=== PATIENT | male | born 1990 | race Caucasian/White ===

== ENCOUNTER 2022-09-27 12:18 | Emergency (ER) | payer BC, SELFPAY ==
--- NOTE | 2022-09-27 12:22 | ED.DENTAL ---
HPI - Dental/Oral General Chief complaint: Dental/Oral Stated complaint: Tooth infection Time Seen by Provider: 09/27/22 12:22 Source: patient Mode of arrival: ambulatory Limitations: no limitations History of Present Illness HPI Narrative: Curtis is a 32-year-old male patient presenting to clinic today with complaints of a possible tooth infection. He reports he noticed pain to his left upper 2nd incisor last night and developed drainage this morning. No fever or chills. Related Data Allergies Allergy/AdvReac Type Severity Reaction Status Date / Time Penicillins Allergy Intermediate Swelling Verified 09/27/22 12:21 of Lip/Tongue/Throat Review of Systems Review of Systems: Pertinent positives per HPI. Patient denies any fever, chills, rash, headache, visual changes, dizziness, cough, runny nose, sore throat, shortness of breath, chest pain, palpitations, nausea, vomiting, diarrhea, constipation, abdominal pain, or any urinary issues. PMFSH Surgical History Surgical History H/O inguinal hernia repair History of orthopedic surgery Left fifth digit repair status post forklift injury Comments At the time of my signature, I reviewed and agree with the nursing past medical, surgical, social, and family history. There is no relevant family history pertinent to the patient complaint. Exam Narrative: General: Well-developed, well nourished, in no apparent distress Head: Normocephalic, atraumatic Eyes: Pupils equally round and reactive to light bilaterally, EOM intact, sclera and conjunctive clear, no discharge, lids normal Ears: TMs intact and clear, ear canals clear, no drainage, grossly hearing normal. Nose: Nares patent, no discharge, no inflammation, no sinus tenderness. Mouth: Oropharynx without lesions or masses, very poor dentition, MMM. Dental abscess to the left upper 2nd incisor. Neck: Supple, trachea midline, no enlargement of anterior or posterior cervical nodes, no thyroid masses or goiter palpable. Cardio: Regular rate and rhythm, s1 and s2 normal, no murmur appreciated. Resp: Clear to auscultation bilaterally anteriorly and posteriorly, no rhonchi, rales, wheezing or rubs Course Course Emergency Course: Portions of this record may have been created with voice recognition software. Level of Care: Express Care Visit Vital Signs Vital signs: Vital signs reviewed MDM - Dental/Oral MDM Narrative Medical decision making narrative: At the time of visit patient is resting comfortably on the exam table. I suspect patient has a dental abscess. Prescription for clindamycin was sent to the pharmacy. Supportive measures were discussed with the patient and he voiced understanding of discharge instructions and agrees to treatment plan. Differential Diagnosis Differential diagnosis: Likely gingival abscess, dental caries, toothache and dental abscess Discharge Plan Discharge Clinical Impression: Dental abscess Patient Disposition: Home, Self-Care Condition: Stable Instructions: Antibiotic Form, Dental Abscess (ED) Additional Instructions: Take clindamycin as prescribed May take Tylenol/Motrin as needed for pain or fever Follow-up with your dentist as soon as possible. Go to the emergency room if you develop high fever not controlled by Tylenol or Motrin, worsening of pain, confusion, lethargy, weakness, chest pain, or shortness of breath. Prescriptions: New clindamycin HCl 300 mg capsule 300 mg PO Q8H 10 Days Qty: 30 0RF Follow-up/Referrals: PHYSICIAN,SATIN FINISHER [Primary Care Provider] - Time of Disposition: 12:36 Quality NIHSS Nursing Documentation ED NIHSS nursing documentation: reviewed/agree
[2022-09-27 12:31] VITALS: BP 130/84; PULSE 74; RESP 16; TEMP 36.6; O2SAT 99
== END 2022-09-27 12:40 | disposition home or self-care (01) ==
PROVIDERS: Emergency Provider Nurse Practitioner Family
DX: K04.7 Periapical abscess without sinus (principal)
CPT/HCPCS: 99213; G0463

== ENCOUNTER 2023-08-09 08:26 | Emergency (ER) | payer BC, SELFPAY ==
--- NOTE | ~2023-08-09 | XR_ITS ---
XR shoulder LT min 2V 08/09/2023 08:45 INDICATION: Left shoulder pain PROCEDURE: 4 views left shoulder COMPARISON: No prior studies for comparison. FINDINGS: Fracture, dislocation or subluxation is not identified. The soft tissues appear within norm al limits. No foreign bodies are identified. IMPRESSION: 1: NO ACUTE BONE OR JOINT ABNORMALITY IDENTIFIED. Reviewed, dictated and finalized at location B.
[2023-08-09 08:27] VITALS: BP 129/92; PULSE 87; RESP 20; TEMP 36.4; O2SAT 100
[2023-08-09] MEDS: KETOROLAC (*BKC) 60 MG/2 ML VIAL IM (08:49)
--- NOTE | 2023-08-09 09:15 | ED.UPPEXIN ---
HPI - Extremity Injury (Upper) General Chief Complaint: Extremity Injury, Upper Stated Complaint: left shoulder injury Time Seen by Provider: 08/09/23 08:29 History of Present Illness HPI narrative: Patient is a 32-year-old male who presents ER with left shoulder pain. He fell asleep with his child on his lap last night in a chair. When he woke up and tried to push himself up he felt a pop in his left upper shoulder moving into his back and scapula. No numbness or tingling. Has pain with internal rotation trying to reach his midback. Related Data Allergies Allergy/AdvReac Type Severity Reaction Status Date / Time Penicillins Allergy Intermediate Swelling Verified 08/09/23 08:32 of Lip/Tongue/Throat Review of Systems Constitutional: Constitutional: Reports no additional constitutional complaints Musculoskeletal: Musculoskeletal: Reports back pain, Reports arthralgias, Denies joint swelling and Denies muscle cramps Integumentary/Breasts: Skin/Breast: Reports system reviewed and no additional complaints, except as docu Neurologic: Reports system reviewed and no additional complaints, except as documented PMFSH Surgical History Surgical History H/O inguinal hernia repair History of orthopedic surgery Left fifth digit repair status post forklift injury Social History Social History (Updated 08/09/23 @ 09:20 by Manoj Abad MD) Social History: History of IV drug abuse. Exam Narrative: GENERAL: Well-appearing, well-nourished, and in no acute distress. HEAD: Normocephalic, atraumatic. HEART: Regular rate and rhythm. Normal peripheral pulses. EXTREMITIES: Normal range of motion But has some discomfort with internal rotation left upper extremity region towards midline of the back. No anterior joint pain. Most discomfort seems to be superior to the scapula on left side. No edema. SKIN: Warm, dry, no rash. NEURO: Alert and oriented x3. PSYCH: Normal mood and affect. Course Course Emergency Course: Patient educated on imaging results. Discussed conservative management and need for follow-up with PCP. Patient verbalized understanding. Vital Signs Vital signs: Vital Signs Temperature 97.6 F 08/09/23 08:27 Pulse Rate 87 08/09/23 08:27 Respiratory Rate 20 08/09/23 08:27 Blood Pressure 129/92 H 08/09/23 08:27 Pulse Oximetry 100 08/09/23 08:27 Oxygen Delivery Room Air 08/09/23 08:27 Temperature 97.6 F 08/09/23 08:27 Pulse Rate 87 08/09/23 08:27 Respiratory Rate 20 08/09/23 08:27 Blood Pressure 129/92 H 08/09/23 08:27 Pulse Oximetry 100 08/09/23 08:27 Oxygen Delivery Room Air 08/09/23 08:27 MDM - Extremity Injury (Upper) Imaging Data Radiologist's impression: ITS Impressions Shoulder X-Ray 08/09/23 08:47 IMPRESSION: 1: NO ACUTE BONE OR JOINT ABNORMALITY IDENTIFIED. Discharge Plan Discharge Clinical Impression: Left shoulder strain Patient Disposition: Home, Self-Care Condition: Stable Instructions: Shoulder Pain (ED) Additional Instructions: the pain in her shoulders likely related to a pulled muscle your scapula. Take anti-inflammatory medications to help with her discomfort. Follow up with her primary care doctor because if you are not improving you may require an MRI. Prescriptions: New naproxen 375 mg tablet 375 mg PO BID Qty: 14 0RF No Action clindamycin HCl 300 mg capsule 300 mg PO Q8H 10 Days Qty: 30 0RF Follow-up/Referrals: UNKNOWN,DOCTOR [Primary Care Provider] - 1 Week
== END 2023-08-09 09:30 | disposition home or self-care (01) ==
PROVIDERS: Emergency Provider Emergency Medicine
DX: S46.912A Strain of unspecified muscle, fascia and tendon at shoulder and upper arm level, left arm, initial encounter (principal); X50.9XXA Other and unspecified overexertion or strenuous movements or postures, initial encounter
CPT/HCPCS: 73030; 96372; 99283; J1885

== ENCOUNTER 2023-11-06 09:38 | Emergency (ER) | payer BC, SELFPAY ==
[2023-11-06 09:47] VITALS: BP 144/84; PULSE 98; RESP 16; TEMP 36.7; O2SAT 99
--- NOTE | 2023-11-06 10:41 | ED.GENADULT ---
HPI - General Adult General Chief complaint: Nausea/Vomiting/Diarrhea Stated complaint: throwing,TEJADA,cramping Source: patient Mode of arrival: ambulatory Limitations: no limitations History of Present Illness HPI narrative: Patient presents for evaluation of dizziness, lightheadedness, and sensation that he is going to pass out . Symptoms started today while working. 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 He reports dyspnea on exertion, going up the steps. That is a new symptom for him. He denies any chest pain. He believes he is dehydrated. He was recently on a 10 day vacation and drank (3) half-gallons of rum during that time. His urine is dark and concentrated. He reports nausea and vomiting, unable to keep any fluids down today. Related Data Home Medications Medication Instructions Recorded Confirmed ondansetron HCl 4 mg tablet 4 mg PO Q6H PRN Nausea And Vomiting 11/06/23 11/06/23 Allergies Allergy/AdvReac Type Severity Reaction Status Date / Time Penicillins Allergy Intermediate Swelling Verified 11/06/23 09:39 of Lip/Tongue/Throat Review of Systems Review of Systems: CONSTITUTIONAL: Reports weakness. Denies fever, chills, or sweats. EYES: Denies visual changes, redness, or discharge. ENT: Denies rhinorrhea, congestion, sore throat, or otalgia. CARDIOVASCULAR: Denies chest pain, palpitations, or edema. RESPIRATORY: Reports PRATT. Denies cough. GASTROINTESTINAL: Reports nausea and vomiting. Denies abdominal pain. GENITOURINARY: Denies dysuria or hematuria. SKIN: Denies rash or itching. MUSCULOSKELETAL: Denies back pain, joint pain, or myalgia. NEUROLOGIC: Reports dizziness, sensation he is going to pass out and lightheadedness. PSYCHIATRIC: Denies anxiety or depression. [facility] Past Medical History Medical History No pertinent past medical history Surgical History Surgical History H/O inguinal hernia repair History of orthopedic surgery Left fifth digit repair status post forklift injury Family History Family History Mother Family history non-contributory Social History Social History Social History: History of IV drug abuse. Smoking packs per day: 2 Smoking cigarettes per day: 40.0 Smoking status: Current every day smoker Tobacco type: cigarettes Alcohol intake: current Gender identity (if verbalized by the patient): Male Spiritual care concerns: No Exam Narrative: GENERAL: Well-appearing, well-nourished, and in no acute distress. HEAD: Normocephalic, atraumatic. EYES: PERRLA and EOMI. ENT: Nares clear, no rhinorrhea or epistaxis. Mucous membranes moist. Oropharynx without tonsillar hypertrophy exudate or other lesions. Bilateral TMs pearly hannon nonbulging NECK: Supple. No adenopathy or masses. No carotid bruits or JVD CHEST: Clear to auscultation. No respiratory distress. No wheezes rales or rhonchi HEART: Regular rate and rhythm. No murmur heard. Normal peripheral pulses. ABDOMEN: Soft, nontender, nondistended, normal active bowel sounds. EXTREMITIES: Normal range of motion. No edema. SKIN: Warm, dry, no rash. NEURO: No focal deficits. Alert and oriented x3. PSYCH: Normal mood and affect. Course Course Emergency Course: This is a 33-year-old male who presented for evaluation of dizziness, weakness, lightheadedness, near syncope, nausea and vomiting after he exposure. Unfortunately he is not able to keep any fluids down. Advised to go to the hospital for labs and IV hydration. He is agreeable to this plan. [facility] as his facility of choice. I contacted [facility] Emergency [facility] and spoke with Dr. Bridges who agreed to accept pt
== END 2023-11-06 10:10 | disposition short-term general hospital (02) ==
PROVIDERS: Emergency Provider Nurse Practitioner
DX: E86.0 Dehydration (principal); X30.XXXA Exposure to excessive natural heat, initial encounter; F17.210 Nicotine dependence, cigarettes, uncomplicated
CPT/HCPCS: 99212; G0463

== ENCOUNTER 2023-11-06 10:28 | Observation (INO) | payer BC, SELFPAY ==
[2023-11-06] VITALS (28 sets, daily range): BP systolic 124–155; BP diastolic 68–99; PULSE 95–128; RESP 11–23; TEMP 36.8–37.4; O2SAT 93–100; BMI 26.7
--- NOTE | ~2023-11-06 | US_ITS ---
Limited ABDOMINAL ULTRASOUND Ordering provider: Prachi Newberry PA-C History: . abnl lfts, n/v . Comparison: None FINDINGS: LIVER: Normal size.Fat infiltration.. No focal hepatic lesions or perihepatic fluid collections are i dentified. Portal vein flow normal. GALLBLADDER: Distended. Unremarkable. No evidence for stones, sludge, gallbladder wall thickening or pericholecystic fluid collections. The wall thicknesses 0.4 cm. A negative sonographic Quinn's sign was noted. BILIARY DUCTS: No evidence for intra or extrahepatic biliary dilation. Common bile duct measures 5 mm in diameter which is within normal limits. PANCREAS: Normal echotexture and size. UPPER ABDOMINAL AORTA: Normal in caliber. Proximal aorta measures 1.9 cm. IVC: Patent. FREE FLUID: None. IMPRESSION: Fat infiltration of the liver otherwise, Unremarkable limited ultrasound of the abdomen. Reviewed, dictated and finalized at location A.
--- NOTE | 2023-11-06 11:00 | ECG_ITS ---
Test Date: 2023-11-06 11:31:43 Measurements Intervals [place] Rate: 87 P: 71 OK: 151 QRS: 54 QRSD: 95 T: 42 QT: 372 QTc: 450 Interpretive Statements SINUS RHYTHM WITH SINUS ARRHYTHMIA BORDERLINE ST-T WAVE ABNORMALITY- INF/LAT LEADS BORDERLINE ECG No previous ECG available for comparison Electronically Signed On 11-06-2023 12:11:06 CDT by Bj Bright D.O.
[2023-11-06 11:01] LABS: Basophils Absolute Auto 0.1 K/mm3 (0.0-0.1); Basophils Percent Auto 1.8 % (0.2-1.2); Eosinophils Absolute Auto 0.1 K/mm3 (0-0.3); Eosinophils Percent Auto 1.2 % (0-4.4); Hematocrit 43.3 % (42.0-52.0); Hemoglobin 15.3 g/dL (14.0-18.0); Immature Granulocyte Absolute 0.02 K/mm3 (0.00-0.031); Immature Granulocyte Percent A 0.4 % (0-0.5); Lymphocytes Percent Auto 28.2 % (18.3-44.2); Mean Corpuscular HGB Conc 35.3 g/dl (32-36); Mean Corpuscular Hemoglobin 34.9 pg (26-34); Mean Corpuscular Volume 98.9 fl (80-100); Mean Platelet Volume 10.4 fl (7.4-10.4); Monocytes Absolute Auto 0.4 K/mm3 (0.1-0.6); Monocytes Percent Auto 8.5 % (2.6-8.5); Neutrophils Percent Auto 59.9 % (45.5-73.1); Platelet Count Result 110 k/mm3 (150-375); Red Blood Count 4.38 M/mm3 (4.6-6.20)
[2023-11-06 11:14] LABS: Lactic Acid Reflex 2.3 mmol/L (0.7-2.0)
[2023-11-06 11:18] LABS: Alanine Aminotransferase 108 U/L (6-50); Albumin Level 4.5 g/dL (3.5-5.1); Alkaline Phosphatase 86 U/L (38-126); Anion Gap 14 mmol/L (4-12); Aspartate Amino Transferase 211 U/L (17-59); Bilirubin,Total 2.7 mg/dL (0.2-1.3); Blood Urea Nitrogen 5 mg/dL (9-20); Calcium 9.2 mg/dL (8.4-10.2); Carbon Dioxide 30 mmol/L (22-30); Chloride 95 mmol/L (98-107); Creatine Kinase 221 U/L (55-170); Estimated CRCL calculation 116 ml/min; Estimated Glomerular Filt Rate > 60; Glucose 129 mg/dL (65-110); Potassium 2.6 mmol/L (3.4-5.0); Sodium 139 mmol/L (137-145)
[2023-11-06] MEDS: SODIUM CHLORIDE 0.9% IV 1,000 ML 999 ML IV CONT ×2 (11:23→12:00)
[2023-11-06 11:34] LABS: Magnesium 1.3 mg/dL (1.6-2.3)
[2023-11-06 11:37] LABS: Add Urine Microscopic? YES; Appearance Urine Clear (Clear); Bacteria Urine None Seen /hpf; Bilirubin Urine 2+ (Negative); Blood Urine Negative (Negative); Color Urine Dark Yellow (Yellow); Glucose Urine UA Negative (Negative); Ketones Urine Negative (Negative); Leukocyte Esterase Ur 1+ LEU/UL (Negative); Mucus Urine Present /lpf; Need Manual Microscopic Reviewed; Nitrate Urine Positive (Negative); Protein Urine 1+ mg/dL (Negative); RBC Urine 0-2 /hpf (0-2); Specific Grav Ur 1.018 (1.001-1.035); Squamous Epithelial Cell Urine None Seen /hpf (Few); WBC Urine 0-5 /hpf (0-3)
[2023-11-06] MEDS: POTASSIUM CHLORIDE INJ 40 MEQ in SODIUM CHLORIDE 0.9% IV 500 ML 130 MEQ IVPB (11:56)
[2023-11-06 11:58] LABS: Lipase 183 U/L (23-300)
[2023-11-06] MEDS: POTASSIUM CHLORIDE 20 MEQ ER TABLET 40 MEQ PO (12:17)
[2023-11-06] MEDS: MAGNESIUM SULF 2 GM/WATER 50ML 2 GM/50 ML BAG IVPB (12:18)
--- NOTE | 2023-11-06 12:23 | ED.GENADULT ---
HPI - General Adult General Chief complaint: Unspecified <EDWARD Orellana Last Filed: 11/06/23 14:41> Stated complaint: heat exhaustion, near syncope <EDWARD Orellana Last Filed: 11/06/23 14:41> Time Seen by Provider: 11/06/23 10:43 <EDWARD Orellana Last Filed: 11/06/23 14:41> Source: patient <EDWARD Orellana Last Filed: 11/06/23 14:41> Mode of arrival: ambulatory <EDWARD Orellana Last Filed: 11/06/23 14:41> Limitations: no limitations <EDWARD Orellana Last Filed: 11/06/23 14:41> History of Present Illness HPI narrative: Patient is a 33 y/o male who presents the ED with concern for heat exhaustion. Patient reports he spent his last 10 days on vacation with his family outside. He states he drink alcohol most days and did not drink much water. 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 He states he was working in a 5 story building that was approximately 130?. While walking up and down stairs at work he began feeling very dizzy lightheaded, near syncopal. He was then referred here for further evaluation. Patient also reports having muscle cramping this morning, nausea. Denies vomiting, abdominal pain, focal weakness or numbness. Patient does drink 1-2 drinks of alcohol daily. He has had the shakes before after stopping drinking. He denies history of withdrawal seizures. <EDWARD Orellana Last Filed: 11/06/23 14:41> Related Data Home medications: Home Medications Medication Instructions Recorded Confirmed ondansetron HCl 4 mg tablet 4 mg PO Q6H PRN Nausea And Vomiting 11/06/23 11/06/23 <EDWARD Orellana Last Filed: 11/06/23 14:41> Allergies/adverse reactions: Allergies Allergy/AdvReac Type Severity Reaction Status Date / Time Penicillins Allergy Intermediate Swelling Verified 11/06/23 09:39 of Lip/Tongue/Throat <Prachi Newberry PA-C - Last Filed: 11/06/23 14:41> Review of Systems Review of Systems: CONSTITUTIONAL: Denies fever, chills, or sweats. GASTROINTESTINAL: See HPI MUSCULOSKELETAL: See HPI NEUROLOGIC: See HPI <Prachi Newberry PA-C - Last Filed: 11/06/23 14:41> All systems reviewed & are unremarkable except as noted in HPI and below <Prachi Newberry PA-C - Last Filed: 11/06/23 14:41> [facility] Past Medical History Medical History: Medical History (Updated 11/07/23 @ 00:02 by Suman Elizondo) Daily consumption of alcohol Tobacco dependence <Prachi Newberry PA-C - Last Filed: 11/06/23 14:41> Surgical History Surgical History: Surgical History History of inguinal hernia repair History of orthopedic surgery Left fifth digit repair status post forklift injury. <Prachi Newberry PA-C - Last Filed: 11/06/23 14:41> Family History Family History: Family History Mother Family history non-contributory <Prachi Newberry PA-C - Last Filed: 11/06/23 14:41> Social History Social History: Social History (Updated 11/06/23 @ 21:50 by Jennie Lopez PA-C) Social History: Surrogate medical decision maker: Mirtha Tariq, spouse. Code status: Full code. Smoking packs per day: 2 Smoking cigarettes per day: 40.0 Smoking status: Current every day smoker Tobacco type: cigarettes Second hand tobacco smoke exposure: Yes Alcohol intake: current Drinks per week: 24 Substance use: never Substance use type: does not use Do You Feel Safe in your Home?: Yes Lack of Transportation: No Lack of Food: Never True Current Housing: I Have Housing Concerned About Future Housing: No Difficulty Paying Gas/Electric Bills: No Difficulty Paying for Meds: No Currently Unemployed: No Education: High School Diploma/GED Difficulty w/ Ch
[2023-11-06 13:59] LABS: Reflex Lactic Acid Yes or No Add Lactic
--- NOTE | 2023-11-06 14:00 | PM.IMHP ---
H&P: HPI History of Present Illness Date/Time: 11/06/23 15:00 Chief Complaint: Feels dehydrated. Narrative: This is a previously healthy 33-year-old male smoker who presented to the emergency department via private vehicle for evaluation as he feels dehydrated. The patient provides the following history. He recently returned from a family trip to [place] in [place] and he consumed quite a bit of alcohol during that trip. He admits that he did not make attempts to stay hydrated despite being outside on the [place] for majority of the 10 days. 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 F. He has become increasingly lightheaded, dizzy, and nauseated as the day has progressed and his muscles are cramping. He believes that he is probably dehydrated. He denies syncope, vomiting, chest pain, shortness of breath, and diarrhea. He has not noticed a significant decrease in urine output but urine is darker than usual. He denies dysuria, hematuria lower abdominal pain low back In regards to his alcohol consumption, he reports drinking 1 to 2 alcoholic beverages a day however he goes on to say that he has had shakes before when he has gone days without drinking. He has not had any significant alcohol withdrawal symptoms nor has he had alcohol withdrawal seizures. In the ED: He was afebrile on arrival and in a sinus tachycardia with stable blood pressures. Labs are significant for WBC count 5.0, hemoglobin 15.3, hematocrit 43.3%, sodium 139, potassium 2.6, chloride 95, carbon dioxide 30, anion gap 14, BUN 5, creatinine 0.80, lactic acid 2.3, magnesium 1.3, total bilirubin 2.7, AST 211, ALT 108, alkaline phosphatase 86, total CK 221, total protein 9.0. Urine was positive for 1+ protein, 1+ leukocyte esterase, nitrates, and 0 to 5 WBC. No bacteria or squamous cells were noted on microscopy. Abdominal ultrasound showed fatty infiltration of the liver. He was given a 2 L normal saline bolus, magnesium sulfate 2 mg IV, and potassium chloride 40 mEq p.o. and 40 mEq IV. He is being admitted in this setting for further hydration. Review of Systems Review of Systems: 12 systems were reviewed and are negative except for as per HPI. [facility] Past Medical History Medical History (Updated 11/06/23 @ 21:49 by Jennie Lopez PA-C) Daily consumption of alcohol Tobacco dependence Surgical History Surgical History History of inguinal hernia repair History of orthopedic surgery Left fifth digit repair status post forklift injury. Family History Family History Mother Family history non-contributory Social History Social History (Updated 11/06/23 @ 21:50 by Jennie Lopez PA-C) Social History: Surrogate medical decision maker: Mirtha Tariq, spouse. Code status: Full code. Smoking packs per day: 2 Smoking cigarettes per day: 40.0 Smoking status: Current every day smoker Tobacco type: cigarettes Second hand tobacco smoke exposure: Yes Alcohol intake: current Drinks per week: 24 Substance use: never Substance use type: does not use Do You Feel Safe in your Home?: Yes Lack of Transportation: No Lack of Food: Never True Current Housing: I Have Housing Concerned About Future Housing: No Difficulty Paying Gas/Electric Bills: No Difficulty Paying for Meds: No Currently Unemployed: No Education: High School Diploma/GED Difficulty w/ Childcare or Family Care: No Spiritual care concerns: No Meds Home Medications and Allergies Home Medications Medication Instructions Recorded Confirmed Type ondansetron HCl 4 mg tablet 4 mg PO Q6H PRN Nausea And Vomiting 11/06/23 11/06/23 History Allergies Allergy/AdvReac Type Severity Reaction Status Date / Time Penicillins Allergy Intermediate Swelling
[2023-11-06 14:19] LABS: Lactic Acid 1.9 mmol/L (0.7-2.0)
[2023-11-06] MEDS: ONDANSETRON INJ 4 MG/2 ML VIAL IV PUSH ×2 (14:51→20:33)
[2023-11-06] MEDS: LORazepam INJ (*CRX) 2 MG/ML VIAL IV PUSH (14:52)
--- NOTE | 2023-11-06 15:30 | ADMGEN ---
This patient, Curtis Tariq, was admitted to 2 Medical Room 240-. Patient/family oriented to hospital policies and general routines including ID bracelet, bed and alarms, visiting hours, pain management, procedures, bathroom and other care routines, personal items, smoking policy, room service/diet, and visiting hours. Information on how to activate the Rapid Response Team has been discussed. Patient/Family are encouraged to report perceived risks to care and to ask questions if they do not understand what they are told or what they should do.
[2023-11-06] MEDS: THIAMINE HCL 200 MG/2 ML VIAL 100 MG IV PUSH (15:50)
[2023-11-06] MEDS: SODIUM CHLORIDE 0.9% IV 1,000 ML 125 ML IV CONT ×2 (15:51→20:33)
[2023-11-06 18:27] LABS: Magnesium 1.8 mg/dL (1.6-2.3)
[2023-11-06 18:29] LABS: Creatine Kinase 188 U/L (55-170)
[2023-11-06 18:30] LABS: Anion Gap 9 mmol/L (4-12); Blood Urea Nitrogen 4 mg/dL (9-20); Calcium 8.1 mg/dL (8.4-10.2); Carbon Dioxide 29 mmol/L (22-30); Chloride 102 mmol/L (98-107); Estimated CRCL calculation 116 ml/min; Estimated Glomerular Filt Rate > 60; Glucose 163 mg/dL (65-110); Potassium 3.4 mmol/L (3.4-5.0); Sodium 140 mmol/L (137-145)
[2023-11-06 19:39] LABS: Hepatitis B Surface Antigen Negative (Negative)
[2023-11-06 19:45] LABS: HAV RESULT Negative (Negative); Hepatitis B Core IgM Result Negative (Negative)
[2023-11-06 20:01] LABS: Hepatitis C Virus Antibody Reactive (Negative)
[2023-11-06] MEDS: chlordiazePOXIDE (*CRX) 10 MG CAPSULE PO (20:33)
[2023-11-06] MEDS: LORazepam INJ (*CRX) 2 MG/ML VIAL 1 MG IV PUSH (20:34)
[2023-11-07] VITALS: BP 124/76; PULSE 99
[2023-11-07 00:42] LABS: Glucose Point of Care 98 mg/dl (65-105)
[2023-11-07 04:00] VITALS: PULSE 86
[2023-11-07 05:48] LABS: Basophils Absolute Auto 0.1 K/mm3 (0.0-0.1); Basophils Percent Auto 1.7 % (0.2-1.2); Eosinophils Absolute Auto 0.1 K/mm3 (0-0.3); Eosinophils Percent Auto 2.5 % (0-4.4); Hematocrit 37.3 % (42.0-52.0); Hemoglobin 12.8 g/dL (14.0-18.0); Immature Granulocyte Absolute 0.01 K/mm3 (0.00-0.031); Immature Granulocyte Percent A 0.2 % (0-0.5); Immature Platelet Fraction Pct 4.6 % (0.9-11.2); Lymphocytes Absolute Auto 1.54 K/mm3 (0.9-3.2); Lymphocytes Percent Auto 32.7 % (18.3-44.2); Mean Corpuscular HGB Conc 34.3 g/dl (32-36); Mean Corpuscular Hemoglobin 35.2 pg (26-34); Mean Corpuscular Volume 102.5 fl (80-100); Mean Platelet Volume 10.8 fl (7.4-10.4); Monocytes Absolute Auto 0.4 K/mm3 (0.1-0.6); Monocytes Percent Auto 7.4 % (2.6-8.5); Neutrophils Absolute Auto 2.6 K/mm3 (1.3-6.7); Neutrophils Percent Auto 55.5 % (45.5-73.1); Platelet Count Result 98 k/mm3 (150-375); Red Blood Count 3.64 M/mm3 (4.6-6.20); Red Cell Distribution Width 12.1 % (11.5-14.5); White Blood Count 4.7 K/mm3 (4.5-10.0)
[2023-11-07] MEDS: SODIUM CHLORIDE 0.9% IV 1,000 ML 125 ML IV CONT ×2 (05:57→12:22)
[2023-11-07 05:58] LABS: Alanine Aminotransferase 71 U/L (6-50); Albumin Level 3.4 g/dL (3.5-5.1); Alkaline Phosphatase 75 U/L (38-126); Anion Gap 7 mmol/L (4-12); Aspartate Amino Transferase 107 U/L (17-59); Blood Urea Nitrogen 6 mg/dL (9-20); Calcium 7.4 mg/dL (8.4-10.2); Carbon Dioxide 27 mmol/L (22-30); Chloride 105 mmol/L (98-107); Creatine Kinase 136 U/L (55-170); Estimated CRCL calculation 116 ml/min; Estimated Glomerular Filt Rate > 60; Glucose 91 mg/dL (65-110); Magnesium 1.6 mg/dL (1.6-2.3); Potassium 3.2 mmol/L (3.4-5.0); Sodium 139 mmol/L (137-145)
[2023-11-07 05:59] VITALS: BP 126/73; PULSE 95; RESP 18; TEMP 36.9; O2SAT 94
[2023-11-07 06:42] LABS: Glucose Point of Care 95 mg/dl (65-105)
--- NOTE | 2023-11-07 07:26 | P.PNIM_ITS ---
Progress Note: A&P Assessment and Plan (1) Dehydration: Code(s): E86.0 - Dehydration Status: Acute Assessment and Plan: 11/07/23: * Patient given 2 L normal saline while in the ED * He was started on IV fluids at 125 mL/hr (2) Abnormal urinalysis: Code(s): R82.90 - Unspecified abnormal findings in urine Status: Acute Assessment and Plan: 11/07/23: * UA showing 1+ urine protein, positive nitrate, 2+ urine bilirubin urine urobilinogen 2.0, 1+ leukocyte * Urine culture pending * No symptoms of UTI, no antibiotics started (3) Electrolyte abnormality: Code(s): E87.8 - Other disorders of electrolyte and fluid balance, not elsewhere classified Status: Acute Assessment and Plan: 11/07/23: * Initial potassium 2.6, now 3.2. He was given 40 mEq of potassium in the ED * Initial magnesium 1.3, now 1.6. He was given 2 g of Mag in the ED * We will give another 60 mEq of potassium as well as 2 g of Mag again today * Continue to trend (4) Transaminitis: Code(s): R74.01 - Elevation of levels of liver transaminase levels Status: Acute Assessment and Plan: 11/07/23: * Initial Total bili 2.7, AST 211, ALT 108 * Today total bili 3.0, AST 107, ALT 71 * Ultrasound of abdomen shows fatty liver disease * Hepatitis panel reactive for hep C * HCV RNA PCR pending (5) Fatty liver: Code(s): K76.0 - Fatty (change of) liver, not elsewhere classified Status: Acute Assessment and Plan: 11/07/23: * Ultrasound of abdomen showing fatty liver * See above plan of care (6) Daily consumption of alcohol: Code(s): Z78.9 - Other specified health status Status: Acute Assessment and Plan: 11/07/23: * Reports everyday alcohol use with an average of 24 drinks per week * [facility] protocol (7) Thrombocytopenia: Code(s): D69.6 - Thrombocytopenia, unspecified Status: Acute Assessment and Plan: 11/07/23: * Initial Plt count 110, now down to 98 * Likely secondary to liver disease * Will check Vitamin B12 (8) Tobacco dependence: Code(s): F17.200 - Nicotine dependence, unspecified, uncomplicated Status: Acute Assessment and Plan: 11/07/23: * Current every day smoker, 2 packs per day * Smoking cessation Time Spent With Patient Time with patient: Greater than 35 minutes Subjective Date/time seen: 11/07/23 07:26 Interval history: Interval history: This is a 33-year-old male who presented to the hospital on 11/06/2023 with complaints of dehydration, lightheadedness, dizziness, nausea, muscle aches and cramping. Workup hospital included ultrasound of the abdomen which showed fat infiltration of the liver.. Labs include a white blood cell count of 5.0, platelet count 110, potassium 2 point, anion gap 14, lactic acid 2.3> 1.9, magnesium 1.3, total bili 2.7, AST 211, ALT 108, total CK 221> 188> 136. UA was obtained and showed 1+ urine protein, positive nitrate, 2+ urine bili, 2.p urine urobilinogen, 1+ leukocyte. Hepatitis panel was reactive to hepatitis C, HCV RNA PCR pending. Urine culture pending. EKG shown sinus rhythm with a rate of 87, QTC 450. He was given 2 L normal saline, 80 mEq of potassium, 2 g of Mag, and thiamin while in the ED. he was started on CIWA protocol. 11/07/23: Patient denies. Patient endorses. Review of Systems Review of Systems: All systems reviewed & are unremarkable except as noted in HPI and below Constitutional: Constitutional: Reports as per HPI and Reports no additional constitutio
--- NOTE | 2023-11-07 07:26 | PM.IMPN ---
Progress Note: A&P Assessment and Plan (1) Dehydration: Code(s): E86.0 - Dehydration Status: Acute Assessment and Plan: 11/07/23: Patient given 2 L normal saline while in the ED He was started on IV fluids at 125 mL/hr (2) Abnormal urinalysis: Code(s): R82.90 - Unspecified abnormal findings in urine Status: Acute Assessment and Plan: 11/07/23: UA showing 1+ urine protein, positive nitrate, 2+ urine bilirubin urine urobilinogen 2.0, 1+ leukocyte Urine culture pending No symptoms of UTI, no antibiotics started (3) Electrolyte abnormality: Code(s): E87.8 - Other disorders of electrolyte and fluid balance, not elsewhere classified Status: Acute Assessment and Plan: 11/07/23: Initial potassium 2.6, now 3.2. He was given 40 mEq of potassium in the ED Initial magnesium 1.3, now 1.6. He was given 2 g of Mag in the ED We will give another 60 mEq of potassium as well as 2 g of Mag again today Continue to trend (4) Transaminitis: Code(s): R74.01 - Elevation of levels of liver transaminase levels Status: Acute Assessment and Plan: 11/07/23: Initial Total bili 2.7, AST 211, ALT 108 Today total bili 3.0, AST 107, ALT 71 Ultrasound of abdomen shows fatty liver disease Hepatitis panel reactive for hep C HCV RNA PCR pending (5) Fatty liver: Code(s): K76.0 - Fatty (change of) liver, not elsewhere classified Status: Acute Assessment and Plan: 11/07/23: Ultrasound of abdomen showing fatty liver See above plan of care (6) Daily consumption of alcohol: Code(s): Z78.9 - Other specified health status Status: Acute Assessment and Plan: 11/07/23: Reports everyday alcohol use with an average of 24 drinks per week CIWA protocol (7) Thrombocytopenia: Code(s): D69.6 - Thrombocytopenia, unspecified Status: Acute Assessment and Plan: 11/07/23: Initial Plt count 110, now down to 98 Likely secondary to liver disease Will check Vitamin B12 (8) Tobacco dependence: Code(s): F17.200 - Nicotine dependence, unspecified, uncomplicated Status: Acute Assessment and Plan: 11/07/23: Current every day smoker, 2 packs per day Smoking cessation Time Spent With Patient Time with patient: Greater than 35 minutes Subjective Date/time seen: 11/07/23 07:26 Interval history: Interval history: This is a 33-year-old male who presented to the hospital on 11/06/2023 with complaints of dehydration, lightheadedness, dizziness, nausea, muscle aches and cramping. Workup hospital included ultrasound of the abdomen which showed fat infiltration of the liver.. Labs include a white blood cell count of 5.0, platelet count 110, potassium 2 point, anion gap 14, lactic acid 2.3> 1.9, magnesium 1.3, total bili 2.7, AST 211, ALT 108, total CK 221> 188> 136. UA was obtained and showed 1+ urine protein, positive nitrate, 2+ urine bili, 2.p urine urobilinogen, 1+ leukocyte. Hepatitis panel was reactive to hepatitis C, HCV RNA PCR pending. Urine culture pending. EKG shown sinus rhythm with a rate of 87, QTC 450. He was given 2 L normal saline, 80 mEq of potassium, 2 g of Mag, and thiamin while in the ED. he was started on CIWA protocol. 11/07/23: Patient denies. Patient endorses. Review of Systems Review of Systems: All systems reviewed & are unremarkable except as noted in HPI and below Constitutional: Constitutional: Reports as per HPI and Reports no additional constitutional complaints Eyes: Eyes: Reports as per HPI and Reports no additional eye complaints ENT: Reports system reviewed and no additional complaints, except as documented and Reports as per HPI Cardiovascular: Cardiovascular: Reports as per HPI and Reports no additional cardiovascular complaints Respiratory: Respiratory: Reports as per HPI and Reports no additional respiratory complaints Gastrointestinal: Gastrointestinal: Reports as p
[2023-11-07 08:00] VITALS: BP 120/58; PULSE 79; PULSE 92; RESP 18; TEMP 36.7; O2SAT 90
[2023-11-07] MEDS: MAGNESIUM SULF 2 GM/WATER 50ML 2 GM/50 ML BAG IVPB (08:20)
[2023-11-07 08:21] LABS: Hemoglobin A1C 4.9 % (<5.7)
[2023-11-07] MEDS: FOLIC ACID 1 MG TABLET PO (08:21)
[2023-11-07] MEDS: POTASSIUM CHLORIDE 20 MEQ ER TABLET 40 MEQ PO (08:21)
[2023-11-07] MEDS: THIAMINE HCL 100 MG TABLET PO (08:21)
[2023-11-07 11:50] LABS: Glucose Point of Care 104 mg/dl (65-105)
[2023-11-07 12:00] VITALS: PULSE 84
[2023-11-07] MEDS: POTASSIUM CHLORIDE 20 MEQ ER TABLET PO (12:22)
[2023-11-07 13:37] LABS: Alanine Aminotransferase 77 U/L (6-50); Albumin Level 4.1 g/dL (3.5-5.1); Alkaline Phosphatase 86 U/L (38-126); Anion Gap 9 mmol/L (4-12); Aspartate Amino Transferase 119 U/L (17-59); Bilirubin,Total 3.6 mg/dL (0.2-1.3); Blood Urea Nitrogen 5 mg/dL (9-20); Calcium 8.2 mg/dL (8.4-10.2); Carbon Dioxide 28 mmol/L (22-30); Chloride 100 mmol/L (98-107); Estimated CRCL calculation 116 ml/min; Estimated Glomerular Filt Rate > 60; Glucose 125 mg/dL (65-110); Magnesium 2.2 mg/dL (1.6-2.3); Potassium 3.7 mmol/L (3.4-5.0); Sodium 137 mmol/L (137-145)
--- NOTE | 2023-11-07 17:27 | PM.DS ---
DS: Admitting Diagnosis Discharge Date 11/07/23 Admitting Diagnosis Electrolyte abnormality Dehydration Transaminitis Fatty liver Thrombocytopenia Tobacco dependence abnormal urinalysis DS: Summary Hospital Course Reason for hospitalization: Electrolyte abnormality Dehydration Transaminitis Fatty liver Thrombocytopenia Tobacco dependence abnormal urinalysis Hospital Course: This is a 33-year-old male who presented to the hospital on 11/06/2023 with complaints of dehydration, lightheadedness, dizziness, nausea, muscle aches and cramping. Workup hospital included ultrasound of the abdomen which showed fat infiltration of the liver.. Labs include a white blood cell count of 5.0, platelet count 110, potassium 2 point, anion gap 14, lactic acid 2.3> 1.9, magnesium 1.3, total bili 2.7, AST 211, ALT 108, total CK 221> 188> 136. UA was obtained and showed 1+ urine protein, positive nitrate, 2+ urine bili, 2.p urine urobilinogen, 1+ leukocyte. Hepatitis panel was reactive to hepatitis C, HCV RNA PCR pending. Urine culture pending. EKG shown sinus rhythm with a rate of 87, QTC 450. He was given 2 L normal saline, 80 mEq of potassium, 2 g of Mag, and thiamin while in the ED. he was started on CIWA protocol. Patient denies any fever, chills, nausea, vomiting, diarrhea, abdominal pain, chest pain, shortness a breath. He states that he is feeling much better after receiving fluids and electrolytes. Patient can be discharged home today with close follow-up with primary care physician regarding reactive hepatitis-C reading on labs and his thrombocytopenia. Labs ordered for 1 week and he will follow up with his primary care physician after that. Final diagnosis: Hypokalemia, hypomagnesemia, dehydration transaminitis, fatty liver disease, hepatitis-C, thrombocytopenia Status at Discharge Cognitive/behavioral status at discharge: Alert oriented x3 Functional status at discharge: independent ambulation Overall status at discharge: patient is progressing back to baseline Time Spent with Patient Time attestation: Total time spent providing and/or coordinating discharge services: Time spent: Greater than 30 minutes Exam Narrative: General: In no acute distress, well nourished Head: atraumatic, no encephalopathy Eyes: EOMI, PERRLA, sclera clear ENT: moist mucous membranes, nasal passages clear Neck: supple, no JVD, no adenopathy, trachea midline Cardiac: Normal S1 and S2. RRR No murmur, gallops or friction rubs, peripheral pulses intact. Respiratory: Lungs clear to auscultation, no adventitious lung sounds, currently on room air Gastrointestinal: soft, non-distended, non-tender, normoactive bowel sounds. : voiding without difficulty. Extremities: moves all extremities well, no edema, good ROM, strength 5/5 Skin: clean, dry, intact. No wounds or lesions. Neuro: Alert and oriented x4, cranial nerves intact, no neuro deficits. Psych: normal mood, normal affect, interactive DS: Data Data Completed and Pending Completed studies during hospitalization: Abdomen ultrasound Pending studies at discharge: Urine Culture Labs on day of discharge: Labs from last 24 hours 11/07/23 11/07/23 11/07/23 13:15 11:48 05:57 WBC RBC Hgb Hct MCV MCH MCHC RDW Plt Count MPV Immature Gran % (Auto) Neut % (Auto) Lymph % (Auto) [place] % (Auto) Eos % (Auto) Baso % (Auto) Lymph # (Auto) [place] # (Auto) Eos # (Auto) Baso # (Auto) Abs Immat Gran (auto) Absolute Neuts (auto) Absolute Nucleated RBC Nucleated RBC % % Immature Plt Fraction Sodium 137 Potassium 3.7 Chloride 100 Carbon Dioxide 28 Anion Gap 9 BUN 5 L Creatinine 0.80 Estim Creat Clear Calc 116 Estimated GFR > 60 Glucose 125 H POC Capillary Glucose 104 95 Hemoglobin A1c Calcium 8.2 L Magnesium 2.2 Total Bilirubin 3.6 H AST 119 H ALT 77 H Alkaline Luis
[2023-11-08 15:24] LABS: Hepatitis C RNA, Quant PCR 2480000 IU/mL (NOT DETECTED)
== END 2023-11-07 14:05 | disposition home or self-care (01) ==
LOC: ANHED 10:56 → ANH2MED 14:41
PROVIDERS: Nurse Practitioner Acute Care; Physician Assistant; Student in an Organized Health Care Education/Training Program; Admitting Provider Internal Medicine; Emergency Provider Physician Assistant; Visit Provider General Practice
DX: E87.6 Hypokalemia (principal); E87.8 Other disorders of electrolyte and fluid balance, not elsewhere classified; E83.42 Hypomagnesemia; D69.6 Thrombocytopenia, unspecified; R82.90 Unspecified abnormal findings in urine; B19.20 Unspecified viral hepatitis C without hepatic coma; R55 Syncope and collapse; E86.0 Dehydration; R74.01 Elevation of levels of liver transaminase levels; K76.0 Fatty (change of) liver, not elsewhere classified; F17.210 Nicotine dependence, cigarettes, uncomplicated
CPT/HCPCS: 36415; 76705; 80048; 80053; 80074; 81001; 82550; 82607; 82948; 83036; 83605; 83690; 83735; 85025; 85055; 87086; 87522; 93005; 96361; 96365; 96366; 96367; 96375; 96376; 99285; A9270; G0378; J2060; J2405; J3411; J3475; J3480; J7030; J7040

== ENCOUNTER 2024-08-05 11:28 | Emergency (ER) | payer BC, SELFPAY ==
[2024-08-05 11:30] VITALS: BP 131/79; PULSE 110; RESP 18; TEMP 36.8; O2SAT 97
--- OUTSIDE RECORDS SUMMARY | 2024-08-05 12:58 | XMS_ITS | Clinical Summary ---
Author Organization [facility] Address [address] [place] [address] Care Team Providers Care Tiler Name Role Phone Unknown, Provider Primary Care Provider Unavaila ble Source Comments [facility],non-owned Affiliates and Associated Physician Practices is amultiple site organization consisting of ambulatory clinics and hospital sitesin [place], [place], [place] and [place]. This disclosure is being madepursuant to the Care Everywhere program and may not contain all information available regarding this patient. Last updated 17.[facility] Allergies Active Allergy Reactions Criticality Noted Date Comments Penicillins Anaphylaxis High 03/19/2016 Medications * Be aware that medications may not be up to date on this document. Alwaysverify current medications with the patient. 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 Gender Identity Not on file Sexual Orientation Not on file Last Filed Vital Signs Vital Sign Reading Time Taken Comments Blood Pressure 118/74 03/19/2016 12:00 PM PROJECT LANDSCAPE ARCHITECT Pulse 84 03/19/2016 12:00 PM PROJECT LANDSCAPE ARCHITECT Temperature 36.9 C (98.4 F) 03/19/2016 12:00 PM PROJECT LANDSCAPE ARCHITECT Respiratory Rate 20 03/19/2016 12:00 PM PROJECT LANDSCAPE ARCHITECT Oxygen Saturation 96% 03/19/2016 12:00 PM PROJECT LANDSCAPE ARCHITECT Inhaled Oxygen Concentration - - Weight 74.8 kg (165 lb) 03/19/2016 12:00 PM PROJECT LANDSCAPE ARCHITECT Height 175.3 cm (5' 9 ) 03/19/2016 12:00 PM PROJECT LANDSCAPE ARCHITECT Body Mass Index 24.37 03/19/2016 12:00 PM PROJECT LANDSCAPE ARCHITECT Plan of Treatment Health Maintenance Due Date Last Done Comments HIV SCREENING 09/21/2003 HEPATITIS C SCREENING 09/16/2006 DTAP/TDAP/TD VACCINES (1 - Tdap) 09/21/2007 HEPATITIS B VACCINE (1 of 3 - 19+ 3-dose series) 09/21/2007 COVID-19 VACCINE (1 - 2023-2 5 season) 2023 DEPRESSION SCREENING 04/08/2024 INFLUENZA VACCINE (Season Ended) 2024 ZOSTER VACCINE (1 of 2) 2038 HIB VACCINE Aged Out No longer eligi ble based on patient's age to complete this topic HPV VACCINE Aged Out No longer eligi ble based on patient's age to complete this topic MENINGOCOCCAL (Group B) VACC INE SHARED DECISION-MAKING Aged Out No longer eligibl e based on patient's age to complete this topic MENINGOCOCCAL GROUPS A/C/Y/W VACCINE Aged Out No longer eligible b ased on patient's age to complete this topic PNEUMOCOCCAL VACCINE Aged Out No long er eligible based on patient's age to complete this topic Insurance [employer] Care Teams Tiler Relationship Specialty Start Date End Date Unknown, Provider PCP - General 03/19/16
--- OUTSIDE RECORDS SUMMARY | 2024-08-05 15:40 | XMS_ITS | Clinical Summary ---
Author Organization [facility] Address [address] [place] [address] Care Team Providers Care Sheep And Wheat Farmer Name Role Phone Unknown, Provider Primary Care Provider Unavaila ble Source Comments [facility],non-owned Affiliates and Associated Physician Practices is amultiple site organization consisting of ambulatory clinics and hospital sitesin [place], [place], [place] and [place]. This disclosure is being madepursuant to the Care Everywhere program and may not contain all information available regarding this patient. Last updated 17.[facility] Allergies Active Allergy Reactions Criticality Noted Date Comments Penicillins Anaphylaxis High 03/19/2016 Medications * Be aware that medications may not be up to date on this document. Alwaysverify current medications with the patient. 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 Gender Identity Not on file Sexual Orientation Not on file Last Filed Vital Signs Vital Sign Reading Time Taken Comments Blood Pressure 118/74 03/19/2016 12:00 PM DAIRY FARM WORKER Pulse 84 03/19/2016 12:00 PM DAIRY FARM WORKER Temperature 36.9 C (98.4 F) 03/19/2016 12:00 PM DAIRY FARM WORKER Respiratory Rate 20 03/19/2016 12:00 PM DAIRY FARM WORKER Oxygen Saturation 96% 03/19/2016 12:00 PM DAIRY FARM WORKER Inhaled Oxygen Concentration - - Weight 74.8 kg (165 lb) 03/19/2016 12:00 PM DAIRY FARM WORKER Height 175.3 cm (5' 9 ) 03/19/2016 12:00 PM DAIRY FARM WORKER Body Mass Index 24.37 03/19/2016 12:00 PM DAIRY FARM WORKER Plan of Treatment Health Maintenance Due Date [...] patient's age to complete this topic Insurance [employer] Care Teams Sheep And Wheat Farmer Relationship Specialty Start Date End Date Unknown, Provider PCP - General 03/19/16
== END 2024-08-05 14:41 | disposition left against medical advice (07) ==
LOC: ANHED 14:40
DX: R11.2 Nausea with vomiting, unspecified (principal)
CPT/HCPCS: 99199

== ENCOUNTER 2024-08-06 12:01 | Emergency (ER) | payer BC, SELFPAY ==
[2024-08-06] VITALS (24 sets, daily range): BP systolic 119–148; BP diastolic 75–93; PULSE 93–115; RESP 12–22; TEMP 36.6; O2SAT 95–100
--- NOTE | ~2024-08-06 | US_ITS ---
EXAMINATION: US abdomen limited DATE: 08/06/2024 15:54 INDICATION: Abnormal CT scan. Assess for acute cholecystitis. TECHNIQUE: Multiple grayscale and Doppler ultrasound images of the abdomen were obtained. COMPARISON: CT dated 08/06/2024 and ultrasound dated 11/06/2023 FINDINGS: The pancreatic head and body are normal in appearance. The pancreatic tail is not visualized. Liver has a coarsened echotexture with subtle surface nodularity consistent with cirrhosis. No liver lesion identified. No intrahepatic biliary duct dilation suspected. Portal venous flow was seen in the hepa topetal, normal direction and has normal Doppler waveform. May remain mildly dilated to 1.7 cm which can be seen with secondary portal venous hypertension. There is focal gallbladder wall thickening al paula the gallbladder fossa. The remainder of the gallbladder wall is no. There is echogenic sludge wit hin the gallbladder with no shadowing cholelithiasis. The common bile duct measures 3 mm, which is no rmal. Sonographic Quinn sign was reported as negative by the software development engineer. IMPRESSION: 1. Focal bladder wall thickening along the gallbladder fossa without evident cholelithiasis or Quinn sign to suggest acute cholecystitis and this is most likely related to cirrhosis. 2. Multiple dilated main portal vein which measures up to 17 mm which likely secondary to cirrhosis r elated to portal venous hypertension. Reviewed, dictated and finalized at location B. IMPRESSION: 1. Focal bladder wall thickening along the gallbladder fossa without evident ch olelithiasis or Quinn sign to suggest acute cholecystitis and this is most lik donn related to cirrhosis. 2. Multiple dilated main portal vein which measures up to 17 mm which likely se condary to cirrhosis related to portal venous hypertension.
--- NOTE | ~2024-08-06 | CT_ITS ---
EXAMINATION: CT abdomen pelvis wo con DATE: 08/06/2024 14:39 INDICATION: Flank pain and hematuria TECHNIQUE: Computed tomography (CT) of the abdomen and pelvis was performed without intravenous contr ast. The dose-length product was 496.55 mGy-cm. Automated exposure control and iterative reconstructi on technique were employed. COMPARISON: None. FINDINGS: Lung bases are unremarkable. Heart size normal. No significant pleural or pericardial effus ion. There is nodular liver surface, suspicious for cirrhosis. There are multiple collateral vessels throughout the abdomen. Findings suspicious for portal venous hypertension. The spleen is enlarged me asuring 13.1 cm. There are nonobstructing bilateral renal stones. Gallbladder is moderately distended with possible trace pericholecystic fluid. Consider correlation with ultrasound. No radiopaque galls tones are seen. Nonobstructive bowel gas pattern. No significant abnormality of the aorta. No aneurys m. No ureteral stones or hydronephrosis. No acute osseous abnormality. Normal appendix. Mild mesenter ic lymphadenopathy, likely reactive. The pancreas, adrenal glands are unremarkable. IMPRESSION: 1. Nonobstructing bilateral nephrolithiasis. 2: Cirrhosis with evidence of portal hypertension. Splenomegaly. 3: Moderately distended gallbladder with possible pericholecystic fluid. Recommend correlation with u ltrasound. Cannot exclude cholecystitis. Reviewed, dictated and finalized at location A. IMPRESSION: 1. Nonobstructing bilateral nephrolithiasis. 2: Cirrhosis with evidence of portal hypertension. Splenomegaly. 3: Moderately distended gallbladder with possible pericholecystic fluid. Recomm end correlation with ultrasound. Cannot exclude cholecystitis.
--- NOTE | ~2024-08-06 | XR_ITS ---
Left Shoulder Technique: AP and scapular Y views were obtained. Clinical History: Pain Findings: No fracture or dislocation is seen. Osseous alignment is anatomic. The glenohumeral and acr omioclavicular joint spaces are preserved. Soft tissues are unremarkable. Impression: Unremarkable left shoulder radiographs. Reviewed, dictated and finalized at [facility]. Impression: Unremarkable left shoulder radiographs.
--- NOTE | ~2024-08-06 | XR_ITS ---
Clinical Indication: Chest pain PA and lateral views of the chest: Comparison: 03/05/2016 Findings: The lungs are clear, without evidence of focal consolidation or pleural effusion. Cardiome diastinal silhouette is within normal limits. Bones and soft tissues are unremarkable. Impression: Normal chest. Reviewed, dictated and finalized at location . Impression: Normal chest.
--- NOTE | 2024-08-06 12:19 | ECG_ITS ---
Test Date: 2024-08-06 12:30:33 Measurements Intervals [place] Rate: 103 P: 64 MN: 144 QRS: 40 QRSD: 96 T: 40 QT: 369 QTc: 484 Interpretive Statements SINUS TACHYCARDIA ABNORMAL RHYTHM ECG Compared to ECG 11/06/2023 11:31:43 Sinus rhythm no longer present Sinus arrhythmia no longer present Electronically Signed On 08-07-2024 18:58:22 CDT by Audrey Beauchamp
--- NOTE | 2024-08-06 12:24 | ED.GENADULT ---
HPI - General Adult General Chief complaint: Extremity Injury, Upper Stated complaint: Left shoulder pain Time Seen by Provider: 08/06/24 12:12 History of Present Illness HPI narrative: 33-year-old male presented to the emergency department for evaluation for 15 minutes of left shoulder pain that did resolve prior to arrival. Patient states he has also had some bilateral flank pain for the last few months. Patient does admit to alcoholism and does drink 10-15 shots a day. Patient is going to be following up with [facility] on Saturday for alcohol detox. Patient denies any current chest pain or shoulder pain. Patient did have alcohol just prior to arrival. Related Data Home Medications ?Medication ?Instructions ?Recorded ?Confirmed ?Last Taken ?Type ondansetron HCl 4 mg tablet 4 mg PO Q6H PRN Nausea And Vomiting 11/06/23 11/06/23 Unknown History Allergies Allergy/AdvReac Type Severity Reaction Status Date / Time Penicillins Allergy Intermediate Swelling Verified 08/06/24 12:02 of Lip/Tongue/Throat Review of Systems Review of Systems: All systems reviewed & are unremarkable except as noted in HPI and below PMFSH Past Medical History Medical History (Updated 08/06/24 @ 16:12 by William Rosario MD) Daily consumption of alcohol Tobacco dependence Surgical History Surgical History History of inguinal hernia repair History of orthopedic surgery Left fifth digit repair status post forklift injury. Family History Family History Mother Family history non-contributory Social History Social History (Updated 11/06/23 @ 21:50 by Jennie Lopez PA-C) Social History: Surrogate medical decision maker: Mirtha Tariq, spouse. Code status: Full code. Smoking packs per day: 2 Smoking cigarettes per day: 40.0 Smoking status: Current every day smoker Tobacco type: cigarettes Second hand tobacco smoke exposure: Yes Alcohol intake: current Drinks per week: 24 Substance use: never Substance use type: does not use Do You Feel Safe in your Home?: Yes Lack of Transportation: No Lack of Food: Never True Current Housing: I Have Housing Concerned About Future Housing: No Difficulty Paying Gas/Electric Bills: No Difficulty Paying for Meds: No Currently Unemployed: No Education: High School Diploma/GED Difficulty w/ Childcare or Family Care: No Spiritual care concerns: No Exam Narrative: APPEARANCE: Well appearing, no pain, no distress, well-nourished. HEAD: normocephalic, atraumatic. EYES: PERRLA/EOMI, conjunctivae clear. NOSE: Normal no drainage EARS:TMS clear with good light reflex. THROAT: Pharynx clear, no exudate. NECK: Supple. No adenopathy, no masses. RESPIRATORY: Airway patent, respirations nonlabored. Clear to auscultation bilaterally, no rales, rhonchi, wheezing. CARDIOVASCULAR: Regular rate and rhythm without murmurs rubs or gallops. ABDOMINAL: Soft, nontender, nondistended, normal bowel sounds MUSCULOSKELETAL: Moves all extremities. Strength/ROM intact, No edema, No calf tenderness. NEURO: Alert. Cranial nerves II through XII intact. Grossly intact SKIN: Warm, dry. Normal Color Course Vital Signs Vital signs: Vital Signs Pulse Rate 115 H 08/06/24 12:14 Respiratory Rate 15 08/06/24 12:14 Pulse Oximetry 98 08/06/24 12:14 Temperature 97.8 F 08/06/24 12:21 Pulse Rate 107 H 08/06/24 16:21 Respiratory Rate 20 08/06/24 16:21 Blood Pressure 119/77 08/06/24 16:21 Pulse Oximetry 95 08/06/24 16:21 Oxygen Delivery Room Air 08/06/24 12:21 Medical Decision Making [facility] Narrative Medical decision making narrative: 33-year-old male present to the emergency department for evaluation for left shoulder pain that was resolved prior to arrival. Patient is also complaining of bilateral flank pain. Patient is currently afebrile with no leukocytosis and hemoglobin of 12.8. INR is 1.4. Patient's potassium was 2.8 this was replaced with both 40 mEq p.o. and 20 mEq IV. Patient's magnesium was also low at 1.2 and this is also replaced by IV. Patient does have baseline elevations of his T bili AST and ALT that are not significantly changed. Patient did have hematuria in his urine. CT scan was ordered to evaluate for renal calculi this was negative but they were concerning about possible cholecystitis ultrasound was ordered and this was negative for acute infection patient was sonographic Quinn negative. Patient was updated results of his workup. Patient states he will continue have follow-up with [facility]. All questions concerns were addressed patient was well-appearing at time of discharge. Differential Diagnosis Differential Diagnosis: Cholecystitis, biliary colic, transaminitis, cirrhosis, right shoulder pain, ACS, pulmonary embolism, dehydration, alcohol withdrawal Vital Signs Vital Signs: Vital Signs Pulse Rate 115 H 08/06/24 12:14 Respiratory Rate 15 08/06/24 12:14 Pulse Oximetry 98 08/06/24 12:14 Temperature 97.8 F 08/06/24 12:21 Pulse Rate 107 H 08/06/24 16:21 Respiratory Rate 20 08/06/24 16:21 Blood Pressure 119/77 08/06/24 16:21 Pulse Oximetry 95 08/06/24 16:21 Oxygen Delivery Room Air 08/06/24 12:21 Lab Data Lab results reviewed: Yes I reviewed the patient's lab results. 08/06/24 12:27 08/06/24 12:27 Labs: Lab Results 08/06/24 08/06/24 Range/Units 12:27 14:02 WBC 5.9 (4.5-10.0) K/mm3 RBC 3.74 L (4.6-6.20) M/mm3 Hgb 12.8 L (14.0-18.0) g/dL Hct 37.9 L (42.0-52.0) % MCV 101.3 H (80-100) fl MCH 34.2 H (26-34) pg MCHC 33.8 (32-36) g/dl RDW 12.2 (11.5-14.5) % Plt Count 91 L (150-375) k/mm3 MPV 10.1 (7.4-10.4) fl Immature Gran % (Auto) 0.3 (0-0.5) % Neut % (Auto) 54.8 (45.5-73.1) % Lymph % (Auto) 34.4 (18.3-44.2) % [place] % (Auto) 7.8 (2.6-8.5) % Eos % (Auto) 1.0 (0-4.4) % Baso % (Auto) 1.7 H (0.2-1.2) % Lymph # (Auto) 2.02 (0.9-3.2) K/mm3 [place] # (Auto) 0.5 (0.1-0.6) K/mm3 Eos # (Auto) 0.1 (0-0.3) K/mm3 Baso # (Auto) 0.1 (0.0-0.1) K/mm3 Abs Immat Gran (auto) 0.02 (0.00-0.031) K/mm3 Absolute Neuts (auto) 3.2 (1.3-6.7) K/mm3 Absolute Nucleated RBC 0.000 (0.0-0.012) K/mm3 Nucleated RBC % 0.0 (0.0-0.2) % % Immature Plt Fraction 3.6 (0.9-11.2) % PT 17.1 H (11.1-14.7) Seconds INR 1.4 APTT 37.5 H (22.3-36.8) Seconds Sodium 143 (137-145) mmol/L Potassium 2.8 L* (3.4-5.0) mmol/L Chloride 101 (98-107) mmol/L Carbon Dioxide 31 H (22-30) mmol/L Anion Gap 11 (4-12) mmol/L BUN 5 L (9-20) mg/dL Creatinine 0.80 (0.7-1.3) mg/dL Estim Creat Clear Calc 116 ml/min Estimated GFR > 60 (59 - ) Glucose 162 H (65-110) mg/dL Calcium 7.4 L (8.4-10.2) mg/dL Magnesium 1.2 L (1.6-2.3) mg/dL Total Bilirubin 2.5 H (0.2-1.3) mg/dL AST 274 H (17-59) U/L ALT 90 H (6-50) U/L Alkaline Phosphatase 119 (38-126) U/L Total Creatine Kinase 245 H (55-170) U/L Troponin I 0.021 (0.000-0.034) ng/mL Total Protein 8.0 (6.3-8.2) g/dL Albumin 3.6 (3.5-5.1) g/dL TSH (Reflex) 4.460 (0.465-4.68) uIU/mL Free T4 1.59 (0.78-2.19) ng/dL Total T3 1.40 (0.97-1.69) NG/ML Urine Color Dark yellow (Yellow) Urine Appearance Clear (Clear) Urine pH 7.0 (5.0-9.0) Ur Specific [place] 1.014 (1.001-1.035) Urine Protein 1+ H (Negative) mg/dL Urine Glucose (UA) Negative (Negative) mg/dL Urine Ketones Negative (Negative) mg/dL Ur Blood (Man) 2+ H (Negative) Urine Nitrate Negative (Negative) Urine Bilirubin Negative (Negative) Urine Urobilinogen 4.0 H (<2.0) mg/dL Leukocyte Esterase Rfl Trace H (Negative) RIGO/UL Urine RBC 21-50 H (0-2) /hpf Urine WBC 0-5 (0-3) /hpf Ur Squamous Epith Cells None seen (Few) /hpf Urine Bacteria None seen /hpf Urine Casts 0-2 Imaging Data Radiologist's impression: Impressions Chest X-Ray 08/06/24 12:52 Impression: Normal chest. Shoulder X-Ray 08/06/24 12:52 Impression: Unremarkable left shoulder radiographs. Abdomen/Pelvis CT 08/06/24 14:48 IMPRESSION: 1. Nonobstructing bilateral nephrolithiasis. 2: Cirrhosis with evidence of portal hypertension. Splenomegaly. 3: Moderately distended gallbladder with possible pericholecystic fluid. Recommend correlation with ultrasound. Cannot exclude cholecystitis. Abdomen Ultrasound 08/06/24 15:58 IMPRESSION: 1. Focal bladder wall thickening along the gallbladder fossa without evident cholelithiasis or Quinn sign to suggest acute cholecystitis and this is most likely related to cirrhosis. 2. Multiple dilated main portal vein which measures up to 17 mm which likely secondary to cirrhosis related to portal venous hypertension. Discharge Plan Discharge Clinical Impression: Transaminitis, Hypokalemia, Hypomagnesemia, Dehydration, Acute shoulder pain, Alcohol abuse Patient Disposition: Home Condition: Stable Instructions: Antibiotic Form, Abuse of Alcohol (DC), Arm Pain (ED) Additional Instructions: Decrease your alcohol consumption. Have close follow-up with your primary care physician. Have close follow-up with detox as scheduled. If you have any worsening symptoms then please call or return to the emergency department. Patient Language: Hong [place]er Prescriptions: No Action ondansetron HCl 4 mg Tablet 4 mg PO Q6H PRN (Reason: Nausea And Vomiting) Follow-up/Referrals: UNKNOWN,DOCTOR [Non-Staff] -
[2024-08-06] MEDS: SODIUM CHLORIDE 0.9% IV 1,000 ML 999 ML IV CONT (12:29)
[2024-08-06 12:35] LABS: Basophils Absolute Auto 0.1 K/mm3 (0.0-0.1); Basophils Percent Auto 1.7 % (0.2-1.2); Eosinophils Absolute Auto 0.1 K/mm3 (0-0.3); Hematocrit 37.9 % (42.0-52.0); Hemoglobin 12.8 g/dL (14.0-18.0); Immature Granulocyte Absolute 0.02 K/mm3 (0.00-0.031); Immature Granulocyte Percent A 0.3 % (0-0.5); Immature Platelet Fraction Pct 3.6 % (0.9-11.2); Lymphocytes Absolute Auto 2.02 K/mm3 (0.9-3.2); Lymphocytes Percent Auto 34.4 % (18.3-44.2); Mean Corpuscular HGB Conc 33.8 g/dl (32-36); Mean Corpuscular Hemoglobin 34.2 pg (26-34); Mean Corpuscular Volume 101.3 fl (80-100); Mean Platelet Volume 10.1 fl (7.4-10.4); Monocytes Absolute Auto 0.5 K/mm3 (0.1-0.6); Monocytes Percent Auto 7.8 % (2.6-8.5); Neutrophils Absolute Auto 3.2 K/mm3 (1.3-6.7); Neutrophils Percent Auto 54.8 % (45.5-73.1); Platelet Count Result 91 k/mm3 (150-375); Red Blood Count 3.74 M/mm3 (4.6-6.20); Red Cell Distribution Width 12.2 % (11.5-14.5); White Blood Count 5.9 K/mm3 (4.5-10.0)
[2024-08-06 12:45] LABS: INR 1.4; Prothrombin Time 17.1 Seconds (11.1-14.7)
[2024-08-06 12:46] LABS: Partial Thromboplastin Time 37.5 Seconds (22.3-36.8)
[2024-08-06 13:13] LABS: Troponin I 0.021 ng/mL (0.000-0.034)
[2024-08-06 13:15] LABS: Alanine Aminotransferase 90 U/L (6-50); Albumin Level 3.6 g/dL (3.5-5.1); Alkaline Phosphatase 119 U/L (38-126); Anion Gap 11 mmol/L (4-12); Aspartate Amino Transferase 274 U/L (17-59); Bilirubin,Total 2.5 mg/dL (0.2-1.3); Blood Urea Nitrogen 5 mg/dL (9-20); Calcium 7.4 mg/dL (8.4-10.2); Carbon Dioxide 31 mmol/L (22-30); Chloride 101 mmol/L (98-107); Creatine Kinase 245 U/L (55-170); Estimated CRCL calculation 116 ml/min; Estimated Glomerular Filt Rate > 60; Glucose 162 mg/dL (65-110); Magnesium 1.2 mg/dL (1.6-2.3); Potassium 2.8 mmol/L (3.4-5.0); Sodium 143 mmol/L (137-145)
[2024-08-06] MEDS: KCL 20 MEQ/SW 100 ML 100 ML 50 MEQ IVPB (13:53)
[2024-08-06] MEDS: MAGNESIUM SULF 2 GM/WATER 50ML 2 GM/50 ML BAG IVPB (13:53)
[2024-08-06] MEDS: POTASSIUM CHLORIDE 20 MEQ PACKET (FOR LIQUID) 40 MEQ PO (13:54)
[2024-08-06 14:14] LABS: Add Urine Microscopic? YES; Appearance Urine Clear (Clear); Bacteria Urine None Seen /hpf; Bilirubin Urine Negative (Negative); Blood Urine 2+ (Negative); Color Urine Dark Yellow (Yellow); Glucose Urine UA Negative (Negative); Ketones Urine Negative (Negative); Leukocyte Esterase Ur Trace LEU/UL (Negative); Nitrate Urine Negative (Negative); Non Pathogenic Casts 0-2; Protein Urine 1+ mg/dL (Negative); RBC Urine 21-50 /hpf (0-2); Specific Grav Ur 1.014 (1.001-1.035); Squamous Epithelial Cell Urine None Seen /hpf (Few); WBC Urine 0-5 /hpf (0-3)
[2024-08-06 17:48] LABS: Free T4 Free Thyroxine Reflex 1.59 ng/dL (0.78-2.19)
== END 2024-08-06 16:59 | disposition home or self-care (01) ==
PROVIDERS: Emergency Provider Emergency Medicine
DX: M25.512 Pain in left shoulder (principal); E86.0 Dehydration; E83.42 Hypomagnesemia; E87.6 Hypokalemia; R74.01 Elevation of levels of liver transaminase levels; F10.20 Alcohol dependence, uncomplicated; Y90.9 Presence of alcohol in blood, level not specified; F17.210 Nicotine dependence, cigarettes, uncomplicated; N20.0 Calculus of kidney; K74.60 Unspecified cirrhosis of liver; R16.1 Splenomegaly, not elsewhere classified; R93.2 Abnormal findings on diagnostic imaging of liver and biliary tract
CPT/HCPCS: 36415; 71046; 73030; 74176; 76705; 80053; 81001; 82550; 83735; 84439; 84443; 84480; 84484; 85025; 85055; 85610; 85730; 93005; 96365; 96366; 96368; 99284; A9270; J3475; J3480; J7030

== ENCOUNTER 2024-08-24 07:51 | Emergency (ER) | payer BC, SELFPAY ==
--- OUTSIDE RECORDS SUMMARY | 2024-08-24 07:57 | XMS_ITS | Clinical Summary ---
Author Organization [facility] Address [address] [place] [address] Care Team Providers Care Intelligence Engineer Name Role Phone Unknown, Provider Primary Care Provider Unavaila ble Source Comments [facility],non-owned Affiliates and Associated Physician Practices is amultiple site organization consisting of ambulatory clinics and hospital sitesin [place], [place], [place] and [place]. This disclosure is being madepursuant to the Care Everywhere program and may not contain all information available regarding this patient. Last updated 17.[facility] Allergies Active Allergy Reactions Criticality Noted Date Comments Penicillins Anaphylaxis High 03/19/2016 Medications * Be aware that medications may not be up to date on this document. Alwaysverify current medications with the patient. 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 Gender Identity Not on file Sexual Orientation Not on file Last Filed Vital Signs Vital Sign Reading Time Taken Comments Blood Pressure 118/74 03/19/2016 12:00 PM PRESSURE TEST OPERATOR Pulse 84 03/19/2016 12:00 PM PRESSURE TEST OPERATOR Temperature 36.9 C (98.4 F) 03/19/2016 12:00 PM PRESSURE TEST OPERATOR Respiratory Rate 20 03/19/2016 12:00 PM PRESSURE TEST OPERATOR Oxygen Saturation 96% 03/19/2016 12:00 PM PRESSURE TEST OPERATOR Inhaled Oxygen Concentration - - Weight 74.8 kg (165 lb) 03/19/2016 12:00 PM PRESSURE TEST OPERATOR Height 175.3 cm (5' 9 ) 03/19/2016 12:00 PM PRESSURE TEST OPERATOR Body Mass Index 24.37 03/19/2016 12:00 PM PRESSURE TEST OPERATOR Plan of Treatment Health Maintenance Due Date [...] patient's age to complete this topic Insurance [employer] Care Teams Intelligence Engineer Relationship Specialty Start Date End Date Unknown, Provider PCP - General 03/19/16
[2024-08-24 08:07] VITALS: BP 138/83; PULSE 88; RESP 16; TEMP 36.4; O2SAT 97
[2024-08-24 09:10] VITALS: BP 136/81; PULSE 82; RESP 18; O2SAT 96
--- OUTSIDE RECORDS SUMMARY | 2024-08-24 09:34 | XMS_ITS | Clinical Summary ---
Author Organization [facility] [employer] Address [address] [place] [address] Care Team Providers Care Controller Repairer And Tester Name Role Phone Unknown, Provider Primary Care Provider Unavaila ble Source Comments [facility],non-owned Affiliates and Associated Physician Practices is amultiple site organization consisting of ambulatory clinics and hospital sitesin [place], [place], [place] and [place]. This disclosure is being madepursuant to the Care Everywhere program and may not contain all information available regarding this patient. Last updated 17.[facility] Allergies Active Allergy Reactions Criticality Noted Date Comments Penicillins Anaphylaxis High 03/19/2016 Medications * Be aware that medications may not be up to date on this document. Alwaysverify current medications with the patient. 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 Gender Identity Not on file Sexual Orientation Not on file Last Filed Vital Signs Vital Sign Reading Time Taken Comments Blood Pressure 118/74 03/19/2016 12:00 PM ESTIMATOR PRINTING Pulse 84 03/19/2016 12:00 PM ESTIMATOR PRINTING Temperature 36.9 C (98.4 F) 03/19/2016 12:00 PM ESTIMATOR PRINTING Respiratory Rate 20 03/19/2016 12:00 PM ESTIMATOR PRINTING Oxygen Saturation 96% 03/19/2016 12:00 PM ESTIMATOR PRINTING Inhaled Oxygen Concentration - - Weight 74.8 kg (165 lb) 03/19/2016 12:00 PM ESTIMATOR PRINTING Height 175.3 cm (5' 9 ) 03/19/2016 12:00 PM ESTIMATOR PRINTING Body Mass Index 24.37 03/19/2016 12:00 PM ESTIMATOR PRINTING Plan of Treatment Health Maintenance Due Date [...] patient's age to complete this topic Insurance [employer] Care Teams Controller Repairer And Tester Relationship Specialty Start Date End Date Unknown, Provider PCP - General 03/19/16
--- NOTE | 2024-08-24 09:42 | ED_ITS ---
HPI - Eye Problem General Chief complaint: Eye Problems Stated complaint: right eye issues Time Seen by Provider: 08/24/24 09:13 Source: patient Mode of arrival: ambulatory Limitations: no limitations History of Present Illness HPI Narrative: This is a 33-year-old male that presents to the emergency department for foreign body in the right eye. Reports he was working underneath his car and felt something go into his right eye. He tried to wash it out and was unable to remove it. Reports irritation and redness. Reports mild blurry vision. Related Data Home Medications Medication Instructions Recorded Confirmed Last Taken Type ondansetron HCl 4 mg tablet 4 mg PO Q6H PRN Nausea And Vomiting 11/06/23 11/06/23 Unknown History Allergies Allergy/AdvReac Type Severity Reaction Status Date / Time Penicillins Allergy Intermediate Swelling Verified 08/06/24 12:02 of Lip/Tongue/Throat Review of Systems Review of Systems: CONSTITUTIONAL: Denies fever EYES: Reports visual changes, redness All systems reviewed & are unremarkable except as noted in HPI and below PMFSH Past Medical History Medical History (Updated 08/24/24 @ 09:44 by Lesley Dan PA-C) Daily consumption of alcohol Tobacco dependence Surgical History Surgical History History of inguinal hernia repair History of orthopedic surgery Left fifth digit repair status post forklift injury. Family History Family History Mother Family history non-contributory Social History Social History (Updated 11/06/23 @ 21:50 by Jennie Lopez PA-C) Social History: Surrogate medical decision maker: Mirtha Tariq, spouse. Code status: Full code. Smoking packs per day: 2 Smoking cigarettes per day: 40.0 Smoking status: Current every day smoker Tobacco type: cigarettes Second hand tobacco smoke exposure: Yes Alcohol intake: current Drinks per week: 24 Substance use: never Substance use type: does not use Do You Feel Safe in your Home?: Yes Lack of Transportation: No Lack of Food: Never True Current Housing: I Have Housing Concerned About Future Housing: No Difficulty Paying Gas/Electric Bills: No Difficulty Paying for Meds: No Currently Unemployed: No Education: High School Diploma/GED Difficulty w/ Childcare or Family Care: No Spiritual care concerns: No Exam Narrative: GENERAL: Well-appearing, well-nourished, and in no acute distress. HEAD: Normocephalic, atraumatic. EYES: PERRLA and EOMI. Small foreign body in the right eye at the 9 o clock position. Conjunctival injection in the right eye. 20/25 left eye, 20/30 right eye EXTREMITIES: Normal range of motion. No edema. SKIN: Warm, dry, no rash. NEURO: No focal deficits. Alert and oriented x3. PSYCH: Normal mood and affect Course Vital Signs Vital signs: Vital Signs Temperature 97.6 F 08/24/24 08:07 Pulse Rate 88 08/24/24 08:07 Respiratory Rate 16 08/24/24 08:07 Blood Pressure 138/83 08/24/24 08:07 Pulse Oximetry 97 08/24/24 08:07 Oxygen Delivery Room Air 08/24/24 08:07 Temperature 97.6 F 08/24/24 08:07 Pulse Rate 82 08/24/24 09:10 Respiratory Rate 18 08/24/24 09:10 Blood Pressure 136/81 08/24/24 09:10 Pulse Oximetry 96 08/24/24 09:10 Oxygen Delivery Room Air 08/24/24 08:07 Procedures FB Removal Eye Foreign Body #1: Foreign Body Removal Date: 08/24/24 Foreign Body Removal Time: 09:49 Time Out performed: Yes Location: eye (R) Topical anesthetic used: tetracaine Foreign body: metal Evidence of corneal penetration: No Technique: needle Procedure performed under: direct visualization with magnification Post-procedure medication: topical anesthetic Patient tolerated procedure: well and no complications MDM - Eye Problem MDM Narrative Medical decision making narrative: Patient presents to the emergency department for foreign body in the eye. This was easily removed without complications. No concerning visual changes or other findings on exam. Patient will be started on topical antibiotics and was instructed to follow-up with an senior vice president and chief information officer. He was given warnings to return to the ER Differential Diagnosis Differential diagnosis: Likely corneal abrasion and other (Foreign body in eye) Critical Care Time Critical Care Time Critical Care Time: No Discharge Plan Discharge Clinical Impression: Foreign body in eye, Abrasion, corneal Patient Disposition: Home Condition: Stable Instructions: Antibiotic Form, Corneal Abrasion (ED), Eye Foreign Body (ED) Additional Instructions: Return to the emergency department if you experience fever, redness and swelling of your eye, visual changes, or any other symptoms that are concerning to you Apply antibiotic ointment as prescribed Follow-up with ophthalmology. [facility] if needed Patient Language: Wolof Prescriptions: New erythromycin 5 mg/gram (0.5 %) ointment 0.5 inch EACH EYE QID 5 Days Qty: 3.5 0RF No Action ondansetron HCl 4 mg Tablet 4 mg PO Q6H PRN (Reason: Nausea And Vomiting) Follow-up/Referrals: UNKNOWN,DOCTOR [Primary Care Provider] -
[2024-08-24 10:13] VITALS: BP 135/80; PULSE 88; RESP 18; O2SAT 98
== END 2024-08-24 10:15 | disposition home or self-care (01) ==
PROVIDERS: Emergency Provider Physician Assistant
DX: T15.01XA Foreign body in cornea, right eye, initial encounter (principal); F17.210 Nicotine dependence, cigarettes, uncomplicated; W44.8XXA Other foreign body entering into or through a natural orifice, initial encounter
CPT/HCPCS: 65222; 99283; A9270

== ENCOUNTER 2024-11-27 02:28 | Emergency (ER) | payer BC, SELFPAY ==
--- OUTSIDE RECORDS SUMMARY | 2024-11-27 02:30 | XMS_ITS | Clinical Summary ---
Author Organization [facility] Address [address] [place] [address] Care Team Providers Care Communications Officer Name Role Phone Unknown, Provider Primary Care Provider Unavaila ble Source Comments [facility],non-owned Affiliates and Associated Physician Practices is amultiple site organization consisting of ambulatory clinics and hospital sitesin [place], [place] and [place]. This disclosure is being madepursuant to the Care Everywhere program and may not contain all information available regarding this patient. Last updated 17.[facility] Allergies Active Allergy Reactions Criticality Noted Date Comments Penicillins Anaphylaxis High 03/19/2016 Medications * Be aware that medications may not be up to date on this document. Alwaysverify current medications with the patient. 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 Gender Identity Not on file Sexual Orientation Not on file Last Filed Vital Signs Vital Sign Reading Time Taken Comments Blood Pressure 118/74 03/19/2016 12:00 PM GAMING CAGE WORKER Pulse 84 03/19/2016 12:00 PM GAMING CAGE WORKER Temperature 36.9 C (98.4 F) 03/19/2016 12:00 PM GAMING CAGE WORKER Respiratory Rate 20 03/19/2016 12:00 PM GAMING CAGE WORKER Oxygen Saturation 96% 03/19/2016 12:00 PM GAMING CAGE WORKER Inhaled Oxygen Concentration - - Weight 74.8 kg (165 lb) 03/19/2016 12:00 PM GAMING CAGE WORKER Height 175.3 cm (5' 9) 03/19/2016 12:00 PM GAMING CAGE WORKER Body Mass Index 24.37 03/19/2016 12:00 PM GAMING CAGE WORKER Plan of Treatment Health Maintenance Due Date Last Done Comments HIV SCREENING 09/21/2003 HEPATITIS C SCREENING 09/16/2006 DTAP/TDAP/TD VACCINES (1 - Tdap) 09/21/2007 HEPATITIS B VACCINE (1 of 3 - 19+ 3-dose series) 09/21/2007 HPV VACCINE (1 - 3-dose SCDM series) 09/21/2015 COVID-19 VACCINE (1 - 2023-2 5 season) 2023 DEPRESSION SCREENING 04/08/2024 INFLUENZA VACCINE (#1) 2024 ZOSTER VACCINE (1 of 2) 2038 [...] patient's age to complete this topic Insurance [employer] Care Teams Communications Officer Relationship Specialty Start Date End Date Unknown, Provider PCP - General 03/19/16
[2024-11-27 02:40] VITALS: BP 127/86; PULSE 108; RESP 16; TEMP 36.7; O2SAT 100
--- NOTE | 2024-11-27 03:00 | ED_ITS ---
HPI - Dental/Oral General Chief complaint: Dental/Oral Stated complaint: dental Time Seen by Provider: 11/27/24 02:31 History of Present Illness HPI Narrative: Patient is a 34-year-old male who presents to the emergency department this morning complaining of left lower molar tooth ache. States that he has had cracked tooth for a while but recently felt as though he cracked it again. Patient is hoping to have this tooth extracted and was informed that we do not perform teeth extractions in the emergency department. Admits that he does have a dentist he can follow-up with. Denies any additional symptoms or additional concerns including fevers. Related Data Home Medications ?Medication ?Instructions ?Recorded ?Confirmed ?Last Taken ?Type ondansetron HCl 4 mg tablet 4 mg PO Q6H PRN Nausea And Vomiting 11/06/23 11/06/23 Unknown History Allergies Allergy/AdvReac Type Severity Reaction Status Date / Time Penicillins Allergy Intermediate Swelling Verified 11/27/24 02:35 of Lip/Tongue/Throat Review of Systems Review of Systems: All systems are reviewed and are negative unless stated otherwise in the HPI. [facility] Past Medical History Medical History Daily consumption of alcohol Tobacco dependence Surgical History Surgical History History of inguinal hernia repair History of orthopedic surgery Left fifth digit repair status post forklift injury. Family History Family History Mother Family history non-contributory Social History Social History Social History: Surrogate medical decision maker: Mirtha Tariq, spouse. Code status: Full code. Smoking packs per day: 2 Smoking cigarettes per day: 40.0 Smoking status: Current every day smoker Tobacco type: cigarettes Second hand tobacco smoke exposure: Yes Alcohol intake: current Drinks per week: 24 Substance use: never Substance use type: does not use Do You Feel Safe in your Home?: Yes Lack of Transportation: No Lack of Food: Never True Current Housing: I Have Housing Concerned About Future Housing: No Difficulty Paying Gas/Electric Bills: No Difficulty Paying for Meds: No Currently Unemployed: No Education: High School Diploma/GED Difficulty w/ Childcare or Family Care: No Spiritual care concerns: No Exam Narrative: General: Alert, awake, afebrile, in no acute distress. HEENT: PERRL, no rhinorrhea, no post nasal drip, oropharynx clear, fractured left lower molar tooth, no dental abscess appreciated. Neck: Trachea midline, no JVD, no lymphadenopathy. Cardiovascular: Regular rate and rhythm, no murmurs, rubs or gallops, no peripheral edema. Respiratory: Clear to auscultation bilaterally, no tachypnea, no wheezing, no rhonchi, no rubs, no respiratory distress. Abdomen: Soft, nontender, nondistended, no rebound, no guarding, no peritoneal signs. Musculoskeletal: No joint swelling or deformity, normal muscle tone. Skin: No rashes or petechia, no signs of infection. Psychiatric: Alert and oriented, normal behavior and judgment for situation. Neurological: Alert and oriented to person, place, and time. Follows all commands. No focal deficits, speech is clear and fluent. Course Vital Signs Vital signs: Vital Signs Temperature 98.1 F 11/27/24 02:40 Pulse Rate 108 H 11/27/24 02:40 Respiratory Rate 16 11/27/24 02:40 Blood Pressure 127/86 11/27/24 02:40 Pulse Oximetry 100 11/27/24 02:40 Oxygen Delivery Room Air 11/27/24 02:40 Temperature 98.1 F 11/27/24 02:40 Pulse Rate 98 11/27/24 03:17 Respiratory Rate 18 11/27/24 03:17 Blood Pressure 128/80 11/27/24 03:17 Pulse Oximetry 98 11/27/24 03:17 Oxygen Delivery Room Air 11/27/24 02:40 Procedures Nerve Block Nerve Block 1: Nerve block date: 11/27/24 Nerve block time: 03:00 Time out performed: Yes Local Anesthetic: lidocaine 2% Amount of anesthesia used (mL): 2 Side: left Intraoral Nerve Block: inferior alveolar Procedure Successful: Yes Patient Tolerated Procedure: well and no complications MDM - Dental/Oral MDM Narrative Medical decision making narrative: The patient was evaluated by myself in the emergency department. History is obtained from patient who is an independent historian and physical exam was performed. External medical records were reviewed at this time. Dental block was performed at this time with immediate resolution of patient's symptoms as detailed under procedural note. Differential diagnosis considerations include dentalgia, dental caries, dental fracture, dental abscess. Comorbidities impacting this visit include none. I have evaluated and discussed social determinants of health with the patient that could potentially impact subsequent diagnosis and treatment plans. On repeat assessment of the patient, reevaluation revealed that the patient is doing well and is in no acute distress. Patient symptoms have improved since he arrived to our emergency department. Repeat vital signs were all reviewed and noted to be stable. Differential diagnosis and treatment plan were discussed with the patient at bedside. Patient agrees with discussion and after shared medical decision making agrees with discharge. All questions were answered to the patient's satisfaction. Patient will follow up with his dentist in 3-5 days. Patient was provided with strict return precautions and instructed to return to the emergency department if any new or worsening symptoms develop. The patient was discharged in stable condition. Discharge Plan Discharge Clinical Impression: Dentalgia, Fracture of tooth Patient Disposition: Home Condition: Improved Instructions: Antibiotic Form, Toothache (ED) Additional Instructions: Please follow-up with your dentist within the next 2-3 days. Return to the ED if any new or worsening symptoms develop. Patient Language: Turkish Prescriptions: No Action ondansetron HCl 4 mg Tablet 4 mg PO Q6H PRN (Reason: Nausea And Vomiting) erythromycin 5 mg/gram (0.5 %) ointment 0.5 inch EACH EYE QID 5 Days Qty: 3.5 0RF Follow-up/Referrals: UNKNOWN,DOCTOR [Primary Care Provider] Stand Alone Forms: Work/School Release IP Time of Disposition: 02:59
[2024-11-27] MEDS: LIDOCAINE 2% LOCAL INJ 20 ML VIAL 10 ML INFILTRATE (03:07)
[2024-11-27] MEDS: LIDOCAINE 1% LOCAL INJ 10 ML VIAL INFILTRATE (03:07)
[2024-11-27 03:17] VITALS: BP 128/80; PULSE 98; RESP 18; O2SAT 98
== END 2024-11-27 03:24 | disposition home or self-care (01) ==
LOC: ANHED 03:07
PROVIDERS: Emergency Provider Emergency Medicine
DX: K03.81 Cracked tooth (principal); F17.210 Nicotine dependence, cigarettes, uncomplicated
CPT/HCPCS: 64400; 99282; J2003